=== PATIENT | female | born 1990 | race Caucasian/White ===

== ENCOUNTER 2016-10-14 12:39 | Day surgery (SDC) | payer OTHER ==
[~2016-10-14 12:39] MED LIST: CHOL500050 PO; IMPLANON SUBDERMAL; KEP500TA PO; LORA1TAB PO; OMEP-113 PO; ONDA4TAB9 PO; SYN.15T2 PO; VENL100T3 PO
[2016-10-14] MEDS ORDERED: Lidocaine Topical 2% 30 mL Jelly ONE (13:22)
== END 2016-10-14 23:59 | disposition home or self-care (01) ==
LOC: END 12:39
PROVIDERS: ATTEND Internal Medicine Gastroenterology
DX: R13.10 Dysphagia, unspecified (principal); F17.210 Nicotine dependence, cigarettes, uncomplicated; Z79.899 Other long term (current) drug therapy

== ENCOUNTER → 2017-02-24 | Day surgery (SDC) | payer OTHER ==
[~2017-02-24] VITALS: Ht 167.6 cm; Wt 68.0 kg
[~2017-02-24] MED LIST changes: +Lidocaine Topical 2% 30 mL Jelly ONE; +PRAZ1CAP2 PO; +Propofol 10,000 mCg/mL 20 mL Inj ONE
[2017-02-24 08:23] VITALS: BP 117/69; PULSE 62; RESP 16; O2SAT 100
[2017-02-24 09:25] VITALS: BP 112/69; PULSE 65; RESP 16; O2SAT 100
[2017-02-24 09:35] VITALS: BP 108/66; PULSE 64; RESP 16; O2SAT 100
--- NOTE | 2017-02-24 09:41 | PCM.HPANE ---
Patient Data Date of Service: Feb 24, 2017 Surgeon Admitting Provider: Attending Provider:Tee Hernandez MD Primary Care Physician:Other,Physician Other Provider:Kat Orozco Anesthesia Reason for Visit Dysphagia Ht/WT & BMI Height (Feet): 5 Height (Inches): 6 Weight (Kilograms): 68 Body Mass Index 24.00 Allergies Coded Allergies: codeine (Verified Allergy, Severe, ITCHING, NAUSEA, 02/24/17) phenytoin (Verified Allergy, Severe, ITCHING, RASH, 02/24/17) acetaminophen (Verified Allergy, Mild, nausea vomiting, 02/24/17) hydrocodone (Verified Allergy, Mild, nausea vomiting, 02/24/17) oxycodone (Verified Allergy, Mild, nausea vomiting, 02/24/17) Past Anesthesia History Anesthesia History: Denies:: Abnormal Airway, Anesthesia Reactions, Difficult Intubation, Fam Anesthesia Reaction, Fam Malignant Hypertherm, Malignant Hyperthermia Diabetes History Hx Diabetes?: No MRSA MRSA: No Medications Hypertension Medication: No Home Meds Incl Beta Moises: No Reported Medications Prazosin 1 Mg Capsule1 Mg PO HS 02/24/17 Levothyroxine (Synthroid)150 Mcg [id number] Mcg PO DAILY 30 Days Ref 0 06/06/14 Ondansetron ODT (Zofran ODT)4 Mg Tab.rapdis4 Mg PO PRN PRN For Nausea 06/06/14 [Implanon] No Conflict Check68 Mg SUBDERMAL 06/06/14 Cholecalciferol (Vitamin D3) (Vitamin D3)50,000 Unit [id number],000 Unit PO 06/06/14 Omeprazole Magnesium (Omeprazole)20 Mg Capsule.dr20 Mg PO DAILY 30 Days Ref 0 06/05/14 Lorazepam 1 Mg Tablet1 Mg PO TID PRN For Anxiety Ref 0 06/05/14 Levetiracetam (Keppra)500 Mg Tablet1,500 Mg PO BID 06/05/14 Discontinued Reported Medications Venlafaxine 100 Mg [id number] Mg PO DAILY 30 Days Ref 0 06/06/14 History History of ENT Problems?: No HEENT History: Positive for:: Dysphagia (certain foods) Denies:: Abnormal Airway Difficult Intubation Hearing Problem Denture Type: None Teeth Condition: Within Normal Limits Hx of Heart Problems?: No Cardiovascular History: Denies:: AICD Pacemaker Valvular Heart Disease Hx of Respiratory Problem?: No Respiratory History: Denies:: Asthma Hx Neurologic Problems?: Yes Neurological History: Positive for:: Seizures (last seizure several months ago ; s/p brain tumor resection; complex partial) Denies:: CVA Hx of GI Problems?: Yes Hx of Problems?: No Female Hx: Denies:: Currently Hx Musculoskeletal Problems?: No Psycho Social History: Positive for:: Anxiety Denies:: Hx Depression Hx Surgeries?: Yes (brain surgery-tumor benign removed, thyroid cancer-s/p removed radiation 12) Hx Any Other Health Problems?: No Other History: Positive for:: Thyroid Disease Hx Diabetes: No Hx Alcohol Use: Yes (every few months) Smoking Status: Light Tobacco Smoker Stop/Bang Treated for Sleep Apnea?: No Do You Have a CPAP Machine?: No S-Snoring: Do You Snore Loudly: No T-Tired: feel tired, fatigued: No O-Obsered: Observed not breath: No P-Blood Pressure: treated: No B- Body Mass Index > 35 kg/m2: No A- Age over 50: No N- Neck Large Circumference: No G- Gender Male: No GEOFFREY Total Score: 0 GEOFFREY Risk Assessment: Low Risk, <3 Yes Risk Assessment Category Category 1A: Patient has history of documented sleep apnea, and HAS NOT received any narcotic, sedative or anesthesia administration during this stay. Category 1B: Patient has history of documented sleep apnea, and HAS received any narcotic , sedative or anesthesia administration during this stay Category 2: Patient has SUSPECTED Obstructive Sleep Apnea, and HAS received any narcotic , sedative or anesthesia administration during this stay. Category 3: Patient has SUSPECTED Obstructive Sleep Apnea and HAS NOT received narcotic, sedative or anesthesia administration during this stay. Category 4: Outpatient in Procedural Areas with known sleep apnea or who screen positive for High Risk via the STOP/BANG questionnaire. Exam Exam Vital Signs Vital Signs Date Time Temp Pulse Resp B/P Pulse Ox O2 Delivery O2 Flow Rate FiO2 02/24/17 09:35 64 16 108/66 100 Room Air 02/24/17 09:25 65 16 112/69 100 Room Air 02/24/17 08:23 62 16 117/69 100 Room Air General Appearance: Alert, Oriented X3, Cooperative, No Acute Distress HEENT/AIRWAY: MP 1, Neck Movement (from), Mouth Opening (> 3 FB) Lungs: Clear to Auscultation, Normal Air Movement Heart: Exam Unremarkable, Regular Rate/Rhythm, No Murmurs/Rubs/Gallops Plan Impression Patient chart reviewed, patient interviewed and anesthestic plan with risks, benefits, and alternatives discussed, and informed consent obtained. NPO per Anesth. Guidelines: Yes ASA Physical Status: ASA2 Mod Systemic Disease Anesthetic Plan: MAC Bene/Risks/Altern/Consents: Yes HP Complete Prior to Induction: Yes Yaya Nunez MD Feb 24, 2017 09:41
--- NOTE | 2017-02-24 12:44 | PCM.ANEP1 ---
Post Anesthesia PACU Phase 1 Assessment Date of Service: Feb 24, 2017 Vital Signs Vital Signs Date Time Temp Pulse Resp B/P Pulse Ox O2 Delivery O2 Flow Rate FiO2 02/24/17 09:35 64 16 108/66 100 Room Air 02/24/17 09:25 65 16 112/69 100 Room Air 02/24/17 08:23 62 16 117/69 100 Room Air Anesthetic Administered: MAC Level of Alertness: Awake, talking MURILLO's with Equal Strength: Yes Pain: No Nausea or Vomiting: No CV Function & Hydration Stable: Yes Airway Device: none Oxygen Delivery: Room Air Lungs: Clear to Auscultation, Normal Air Movement Dermatome Level: Full Sensation PACU Phase 2 Assessment Complications: No Follow up Care: No Patient Instructions Provided: N/A Yaya Nunez MD Feb 24, 2017 12:44
== END | disposition home or self-care (01) ==
LOC: END 01:20
PROVIDERS: ATTEND Internal Medicine Gastroenterology
DX: R13.10 Dysphagia, unspecified (principal); R41.9 Unspecified symptoms and signs involving cognitive functions and awareness; F17.210 Nicotine dependence, cigarettes, uncomplicated; R56.9 Unspecified convulsions; Z79.899 Other long term (current) drug therapy; Z88.5 Allergy status to narcotic agent; Z88.6 Allergy status to analgesic agent; Z88.8 Allergy status to other drugs, medicaments and biological substances